=== PATIENT | male | born 1935 | race Caucasian/White ===

== ENCOUNTER 2018-12-07 21:44 | Emergency (ER) ==
[2018-12-07 21:57] VITALS: BP 132/63; TEMP 97.7; BMI 25.0
--- NOTE | 2018-12-07 23:14 | CT ---
Exam: CT of the abdomen and pelvis without contrast History: Anemia Technique: [address] of the abdomen and pelvis without intravascular contrast FINDINGS: Small right pleural effusion. Small pericardial effusion. The gallbladder appears normal . There is a 1 cm cyst in the left hepatic lobe. The liver appears normal otherwise. Normal gallbl adder, pancreas and spleen. There is a 1.3 cm right adrenal adenoma. Kidneys and proximal collectin g system are unremarkable. The appendix is normal. Bowel loops demonstrate normal caliber. No infl amatory change seen in the mesentery or retroperitoneum. Atherosclerotic calcification of the aorta without aneurysm. Colonic diverticulosis of the sigmoid. No pelvic fat inflammation. Enlarged prostate gland measures 4.9 x 6.2 x 5.3 cm. No acute findings of the skeleton. Impression: 1. No inflammatory process, bowel or urinary obstruction is seen. 2. Colonic diverticulosis 3. Small right pleural effusion is nonspecific 4. Small pericardial effusion is nonspecific
--- NOTE | 2018-12-07 23:15 | DI ---
EXAM: Chest, one-view HISTORY: Anemia FINDINGS: Cardiac and mediastinal contours are normal. Pulmonary vasculature is normal. Lungs are clear. Right costophrenic angle blunting representing small pleural fluid. Bony thorax is unremarka ble. IMPRESSION: Small right pleural fluid. Negative exam otherwise.
--- NOTE | 2018-12-07 23:27 | ED.PDOC ---
General ED Provider: Dr. EMMETT BERNAL-ER Chief Complaint: Abnormal Labs Stated Complaint: he is anemia--he has mds Time Seen by Physician: 23:25 Mode of Arrival: Wheelchair Information Source: Patient, Family Exam Limitations: No limitations Primary Care Provider: ILYA ME Nursing and Triage Documentation Reviewed and Agree: Yes Does patient meet sepsis criteria?: No System Inflammatory Response Syndrome: Not Applicable Sepsis Protocol: For patient's 13 years and over: Temp is 96.8 and below OR 101 and greater Pulse >90 BPM Resp >20/minute Acutely Altered Mental Status Are patient's symptoms suggestive of a new infection, such as: -Pneumonia -Skin, Soft Tissue -Endocarditis -UTI -Bone, Joint Infection -Implantable Device -Acute Abdominal Infection -Wound Infection -Meningitis -Blood Stream Catheter Infection -Unknown Miscellaneous Complaint Exam - Complex/Multi-System Complaint/Exam Onset/Duration: unknown Symptoms Are: Still present Initial Severity: Mild Current Severity: Moderate Location of Pain: no pain Associated Signs and Symptoms: Reports: Weakness Respiratory Distress: None JVD Present: No Tachypnea Present: No Stridor Present: No Abdominal Findings: Present: Normal findings Meningeal Signs Positive: No Focal Weakness: Present: None Focal Sensory Loss: Present: None Gait: Abnormal Gag Reflex Present: Yes Babinski Sign: Negative Right, Negative Left Skin Findings: Present: Normal findings Joint Swelling Present: No In-Dwelling Device Present: No Review of Systems - Review Of Systems Constitutional: Reports: No symptoms Eyes: Reports: No symptoms Ears, Nose, Mouth, Throat: Reports: No symptoms Respiratory: Reports: No symptoms Cardiac: Reports: No symptoms GI: Reports: No symptoms : Reports: No symptoms Musculoskeletal: Reports: No symptoms Skin: Reports: No symptoms Neurological: Reports: No symptoms Endocrine: Reports: No symptoms Hematologic/Lymphatic: Reports: No symptoms All Other Systems: Reviewed and Negative Past Medical History - Past Medical History Previously Healthy: No Endocrine: Reports: Unknown Cardiovascular: Reports: Unknown Respiratory: Reports: Unknown Hematological: Reports: Unknown Gastrointestinal: Reports: Unknown Genitourinary: Reports: Unknown Neuro/Psych: Reports: Unknown Musculoskeletal: Reports: Unknown Cancer: Reports: Unknown - Surgical History General Surgical History: Reports: Unknown - Family History Family History: Reports: Unknown - Social History Smoking Status: Former smoker Hx Substance Use: No Alcohol Screening: None - Immunizations Tetanus Shot up to Date: No (unsure) Physical Exam - Physical Exam Appearance: Well-appearing, No pain distress, Well-nourished Eyes: FABIÁN, EOMI, Conjunctiva clear ENT: Ears normal, Nose normal, Oropharynx normal Neck: Supple Respiratory: Airway patent, Breath sounds clear, Breath sounds equal, Respirations nonlabored Cardiovascular: RRR, Pulses normal, No rub, No murmur GI/: Soft, Nontender, No masses, Bowel sounds normal, No Organomegaly Musculoskeletal: Normal strength, ROM intact, No edema, No calf tenderness Skin: Warm Neurological: Sensation intact, Motor intact, Reflexes intact, Cranial nerves intact, Alert, Oriented Psychiatric: Affect appropriate, Mood appropriate Interpretation - Radiology Interpretation Radiology Interpretation By: Radiologist Radiology Results: Negative Exam Interpreted: CT Scan - EKG Interpretation Time of EKG #1: 23:27 Rate: Normal Rhythm: Sinus Ectopy: None [place]: NL ST Segment: Normal Interpretation: nsr Physician Notification - Case Discussed Physician Notified: va notified---agreed to transfer Time of Notification: 23:27 Critical Care Note - Critical Care Note Total Time (mins): 0 Course - Course Hematology/Chemistry: 12/07/18 19:55 12/07/18 19:55 Orders, Labs, Meds: Lab Review 12/07/18 12/07/18 12/07/18 19:55 19:55 19:55 WBC 3.49 L RBC 1.87 L Hgb 5.7 L* Hct 17.8 L* MCV 95.2 H MCH 30.5 MCHC 32.0 RDW Coeff of Zora 17.3 H Plt Count 105 L Immature Gran % (Auto) 0.3 Neut % (Auto) 20.3 Lymph % (Auto) 49.6 [place] % (Auto) 8.6 Eos % (Auto) 19.5 H Baso % (Auto) 1.7 Immature Gran # (Auto) 0.0 Neut # (Auto) 0.7 L Lymph # (Auto) 1.7 [place] # (Auto) 0.3 L Eos # (Auto) 0.7 Baso # (Auto) 0.1 Hypochromasia 1+ Anisocytosis 1+ Spherocytes 1+ Ovalocytes 1+ Sodium 139.3 Potassium 3.72 Chloride 104.1 Carbon Dioxide 27.8 Anion Gap 11.12 BUN 18.0 Creatinine 0.94 Estimated GFR (MDRD) 76.00 BUN/Creatinine Ratio 19.14 Glucose 79.2 Calcium 8.14 L Iron 165.7 Total Bilirubin 1.12 AST 23.9 ALT 17.4 Alkaline Phosphatase 54.1 L Total Protein 6.16 L Albumin 3.45 L Globulin 2.71 Albumin/Globulin Ratio 1.27 Vitamin B12 Pending Stl Occult Blood (IFOB) Stool Occult Blood #2 Stool Occult Blood #3 Blood Type Antibody Screen 12/07/18 12/07/18 20:05 22:50 WBC RBC Hgb Hct MCV MCH MCHC RDW Coeff of Zora Plt Count Immature Gran % (Auto) Neut % (Auto) Lymph % (Auto) Sweet [place] % (Auto) Eos % (Auto) Baso % (Auto) Immature Gran # (Auto) Neut # (Auto) Lymph # (Auto) [place] # (Auto) Eos # (Auto) Baso # (Auto) Hypochromasia Anisocytosis Spherocytes Ovalocytes Sodium Potassium Chloride Carbon Dioxide Anion Gap BUN Creatinine Estimated GFR (MDRD) BUN/Creatinine Ratio Glucose Calcium Iron Total Bilirubin AST ALT Alkaline Phosphatase Total Protein Albumin Globulin Albumin/Globulin Ratio Vitamin B12 Stl Occult Blood (IFOB) Positive Stool Occult Blood #2 No specimen received Stool Occult Blood #3 No specimen received Blood Type A POSITIVE Antibody Screen Negative Orders Category Date Time Status EKG-(ED ONLY) Stat CARDIO 12/07/18 21:45 Completed ED PURE CULTURE OPERATOR APPLIED .ONCE EMERGENCY 12/07/18 21:45 Active ED IV/MEDIPORT/POWERPORT .ONCE EMERGENCY 12/07/18 21:45 Active CBC W/ AUTO DIFF Stat LAB 12/07/18 19:55 Completed COMPREHENSIVE METABOLIC PANEL Stat LAB 12/07/18 19:55 Completed FERRITIN Stat LAB 12/07/18 19:55 Received IRON Stat LAB 12/07/18 19:55 Results OCCULT BLOOD, STOOL Stat LAB 12/07/18 22:50 Completed RBC MORPHOLOGY Stat LAB 12/07/18 19:55 Completed TYPE AND SCREEN Stat LAB 12/07/18 20:05 Completed VITAMIN B12 Stat LAB 12/07/18 19:55 Results 0.9 % Sodium Chloride [Saline Flush] MEDS 12/07/18 21:45 Ordered 1 syr IVF PRN PRN CT ABDOMEN/PELVIS WO CONTRAST Stat RADS 12/07/18 21:51 Completed CXR [CHEST, 1V AP ONLY] Stat RADS 12/07/18 21:50 Completed Medications Generic Name Dose Route Start Last Admin Trade Name Gordon PRN Reason Stop Dose Admin Sodium Chloride 1 syr 12/07/18 21:45 Saline Flush IVF PRN PRN To flush IV Vital Signs: Temp Pulse Resp BP Pulse Ox 12/07/18 21:45 97.7 F 52 L 20 132/63 95 Departure - Departure Time of Disposition: 23:27 Disposition: HOME SELF-CARE Discharge Problem: Myelodysplastic syndrome, Occult blood positive stool Profound anemia Qualifiers: Anemia type: unspecified type Qualified Code(s): D64.9 - Anemia, unspecified Instructions: Anemia (ED) Condition: Stable Pt referred to PMD for follow-up: Yes IPMP verified?: No Allergies/Adverse Reactions: Allergies No Known Allergies Allergy (Unverified 12/07/18 22:07) Home Medications: Ambulatory Orders Acetaminophen [Tylenol] 650 mg PO Q4-6H PRN 12/07/18 Aspirin [Aspirin EC] 81 mg PO BID 12/07/18 Calcium Carbonate/Vitamin D3 [Calcium 600 + Vit D 400 Tablet] 1 each PO BID 09/14 Coconut Oil 1,000 mg PO BID 12/07/18 Darbepoetin Tom in Polysorbat [Aranesp] 300 mcg IJ WEEKLY 12/07/18 Docusate Sodium [Colace] 100 mg PO BID 12/07/18 Doxycycline Hyclate 100 mg PO BID 12/07/18 Escitalopram Oxalate [Lexapro] 10 mg PO DAILY 12/07/18 Folic Acid 0.5 mg PO BID 12/07/18 Gabapentin [Neurontin] 400 mg PO DAILY 12/07/18 Lenalidomide [Revlimid] 5 mg PO DAILY 12/07/18 Levetiracetam 500 mg PO BID 12/07/18 Memantine HCl [Namenda] 10 mg PO BID 12/07/18 Omeprazole 20 mg PO BID 12/07/18 Oxaprozin 600 mg PO BID 12/07/18 Polyethylene Glycol 3350 [Miralax] 17 gm PO DAILY 12/07/18 Rivastigmine Tartrate [Exelon] 6 mg PO BID 12/07/18 Silver Sulfadiazine [Silvadene Cream] 1 applic TP DAILY 12/07/18 Trazodone HCl 25 mg PO BEDTIME 12/07/18 Vit C/E/Zn/Coppr/Lutein/Zeaxan [Preservision Areds 2 Softgel] 1 each PO BID 09/14 Transfer Form Completed: Yes Disposition Discussed With: Patient, Family
== END 2018-12-07 23:48 | disposition short-term general hospital (02) ==
LOC: ED 21:44
DX: D46.9 Myelodysplastic syndrome, unspecified (principal); D64.9 Anemia, unspecified; K92.1 Melena; R53.1 Weakness; Z79.899 Other long term (current) drug therapy
CPT/HCPCS: 36415; 80053; 82272; 82607; 82728; 83540; 85008; 85025; 86850; 86900; 93005; 93010; 99284; 99285